=== PATIENT | female | born 1960 | race Two or more races ===

== ENCOUNTER 2018-06-14 13:50 | Outpatient (CLI) | payer OTHER | END 2018-06-14 14:07 | disposition home or self-care (01) | LOC: NUCLEAR 13:50 | DX: M85.88 Other specified disorders of bone density and structure, other site (principal) ==

== ENCOUNTER 2020-06-18 11:34 | Outpatient (CLI) | payer OTHER | END 2020-06-18 12:50 | disposition home or self-care (01) | LOC: NUCLEAR 11:34 | PROVIDERS: ATTEND Obstetrics & Gynecology | DX: M89.8X0 Other specified disorders of bone, multiple sites (principal); M81.0 Age-related osteoporosis without current pathological fracture ==

== ENCOUNTER 2020-08-08 17:43 | Inpatient (IN) | payer OTHER ==
[~2020-08-08] VITALS: Ht 154.9 cm; Wt 65.8 kg
[2020-08-08] MEDS ORDERED: COZAAR100 MG PO (18:07)
== END 2020-08-12 19:54 | disposition home or self-care (01) | DRG 392 ==
LOC: ER 17:43 → SEC-K 08-09 13:40 → SURH 08-09 13:40 → SURG 08-09 22:00
PROVIDERS: ADMIT Surgery; ATTEND Surgery
DX: K57.20 Diverticulitis of large intestine with perforation and abscess without bleeding (principal); I10 Essential (primary) hypertension; Z20.822 Contact with and (suspected) exposure to COVID-19